=== PATIENT | female | born 1965 | race Caucasian/White ===

== ENCOUNTER 2017-07-07 09:07 | Inpatient (IN) | payer MEDICAID ==
[~2017-07-07] VITALS: Ht 167.6 cm; Wt 45.6 kg
[2017-07-07 09:15] VITALS: Ht 167.6 cm; Wt 45.6 kg
[2017-07-07 10:08] LABS: CARBON DIOXIDE 26.4 mmol/L (21-32); CHLORIDE SERUM 105 mmol/L (98-107); CREATININE SERUM 0.6 mg/dL (0.6-1.0); GFR1 > 60 mL/min; GLUCOSE SERUM 100 mg/dL (74-106); POTASSIUM SERUM 3.9 mmol/L (3.5-5.1); SODIUM SERUM 140 mmol/L (136-145)
[2017-07-07 10:11] LABS: BASOPHIL % 0.6 % (0-2); PLATELET COUNT 226 x10^3mcL (130-400); RED CELL DISTRIBUTION WIDTH 14.1 % (11.5-14.5)
[2017-07-07 10:12] LABS: ALBUMIN 3.8 g/dL (3.4-5.0); ALKALINE PHOSPHATASE 66 U/L (46-116); ALT/SGPT 31 U/L (14-59); AMYLASE 98 U/L (25-115); AST/SGOT 24 U/L (15-37); BILIRUBIN TOTAL 0.36 mg/dL (0.20-1.00); CHOLESTEROL 192 mg/dL (<200); LIPASE 91 IU/L (73-393); TOTAL PROTEIN, SERUM 7.7 g/dL (6.4-8.2)
[2017-07-07 10:22] LABS: HDL CHOLESTEROL 65 mg/dL (40-60)
[2017-07-07 10:30] LABS: UA SPECIFIC GRAVITY <=1.005 (1.005-1.035); microscopic required? YES; urine erythrocyte 1+ (NEGATIVE)
[2017-07-07 10:57] LABS: AMPHETAMINE QUAL UR NONE DETECTED (NEG <=1000)
[2017-07-07] MEDS ORDERED: PROPRANOLOL HCL10 MG PO (11:28)
[2017-07-07] MEDS ORDERED: ESCITALOPRAM10 M1 PO (11:28)
[2017-07-07 13:06] LABS: MAGNESIUM 2.2 mg/dL (1.8-2.4); PHOSPHOROUS 4.1 mg/dL (2.5-4.9)
[2017-07-07 13:16] LABS: T3 TOTAL 1.06 ng/mL
[2017-07-07 13:28] VITALS: BP 126/72
[2017-07-07 14:14] LABS: FREE T4 0.94 ng/dL (0.76-1.46); FREE THYROXINE INDEX 2.3 ug/dL (1.4-4.5); T4(THYROXINE) 7.1 ug/dL (4.7-13.3)
[2017-07-07 16:56] VITALS: BP 112/61
[2017-07-07 17:01] VITALS: BP 164/82
[2017-07-07 19:50] VITALS: BP 136/76
[2017-07-07 19:55] VITALS: BP 139/71
[2017-07-08 02:35] LABS: PLATELET COUNT 227 x10^3mcL (130-400)
[2017-07-08 02:37] LABS: BASOPHIL % 3.4 % (0-2)
[2017-07-08 02:51] LABS: CALCIUM 8.8 mg/dL (8.5-10.1); CARBON DIOXIDE 23.7 mmol/L (21-32); CHLORIDE SERUM 107 mmol/L (98-107); CREATININE SERUM 0.6 mg/dL (0.6-1.0); GFR1 > 60 mL/min; GLUCOSE SERUM 107 mg/dL (74-106); PHOSPHOROUS 4.2 mg/dL (2.5-4.9); POTASSIUM SERUM 3.8 mmol/L (3.5-5.1); SODIUM SERUM 141 mmol/L (136-145)
[2017-07-08 05:22] VITALS: BP 104/60
[2017-07-08] MEDS ORDERED: LAC PO (09:44)
[2017-07-08] MEDS ORDERED: LEVAQUIN750 MG PO (09:44)
[2017-07-08] MEDS ORDERED: FLE10 PO (09:46)
[2017-07-08 09:50] VITALS: BP 113/64
[2017-07-08 12:22] VITALS: BP 113/64
[2017-07-08 14:06] VITALS: BP 107/63
== END 2017-07-08 15:38 | disposition home or self-care (01) | DRG 54 ==
LOC: ED 09:07 → DU 11:58
PROVIDERS: Emergency Medicine; Family Medicine
DX: G44.219 Episodic tension-type headache, not intractable (principal); N39.0 Urinary tract infection, site not specified; F41.9 Anxiety disorder, unspecified; R31.9 Hematuria, unspecified; E66.9 Obesity, unspecified; G43.009 Migraine without aura, not intractable, without status migrainosus; I08.8 Other rheumatic multiple valve diseases; Z68.31 Body mass index [BMI] 31.0-31.9, adult
CPT/HCPCS: 83880; 84439; J1956; J7030; Q0092

== ENCOUNTER 2019-08-15 07:23 | Emergency (ER) | payer MEDICAID ==
[~2019-08-15] VITALS: Ht 152.4 cm; Wt 74.8 kg
[~2019-08-15 07:23] MED LIST: ESCITALOPRAM10 M1 PO; FLE10 PO; LAC PO; LEVAQUIN750 MG PO; PROPRANOLOL HCL10 MG PO
[2019-08-15 07:32] VITALS: Ht 152.4 cm; Wt 74.8 kg
[2019-08-15 10:36] VITALS: BP 114/65
== END 2019-08-15 11:11 | disposition home or self-care (01) ==
LOC: ED 07:23
DX: R51 Headache (principal); R11.2 Nausea with vomiting, unspecified; E11.9 Type 2 diabetes mellitus without complications